=== PATIENT | female | born 1990 | race African-American/Black ===

== ENCOUNTER 2021-03-09 19:08 | Observation (INO) | payer OTHER, SELFPAY ==
--- NOTE | ~2021-03-09 | US_ITS ---
EXAMINATION: US pelvic complete EXAM DATE: 03/10/2021 11:09 INDICATION: Vaginal bleeding. TECHNIQUE: Pelvic transabdominal sonogram was performed. There are multiple grayscale and Doppler im ages available for interpretation. There is no prior study for comparison. FINDINGS: Uterus measures 9.0 x 6.0 x 5.6 cm, and is morphologically normal. Endometrial stripe jeremy sures 14 mm, within normal limits. There is no free pelvic fluid. Right adnexa: The ovary measures 2.6 x 2.0 x 3.0 cm and is morphologically normal. Ovarian vascular f low confirmed. Left adnexa: The ovary measures 2.3 x 2.3 x 2.0 cm and is morphologically normal. Ovarian vascular fl ow confirmed. IMPRESSION: 1. Unremarkable pelvic ultrasound exam. Reviewed, dictated and finalized at location G.
[2021-03-09 19:11] VITALS: BP 136/81; PULSE 84; RESP 16; TEMP 36.5; O2SAT 100
[2021-03-09 20:47] LABS: Basophils Percent Auto 0.6 % (0.2-1.2); Eosinophils Absolute Auto 0.1 K/mm3 (0-0.3); Hematocrit 26.2 % (37.0-47.0); Hemoglobin 7.5 g/dL (12.0-15.0); Immature Granulocyte Absolute 0.02 K/mm3 (0.00-0.031); Immature Granulocyte Percent A 0.3 % (0-0.5); Lymphocytes Absolute Auto 2.79 K/mm3 (0.9-3.2); Lymphocytes Percent Auto 39.8 % (18.3-44.2); Mean Corpuscular HGB Conc 28.6 g/dl (32-36); Mean Corpuscular Hemoglobin 20.4 pg (26-34); Mean Corpuscular Volume 71.4 fl (80-100); Mean Platelet Volume 9.1 fl (7.4-10.4); Monocytes Absolute Auto 0.5 K/mm3 (0.1-0.6); Monocytes Percent Auto 7.6 % (2.6-8.5); Neutrophils Absolute Auto 3.5 K/mm3 (1.3-6.7); Neutrophils Percent Auto 49.7 % (45.5-73.1); Platelet Count Result 460 k/mm3 (150-375); Red Blood Count 3.67 M/mm3 (4.2-5.4); Red Cell Distribution Width 18.8 % (11.5-14.5)
[2021-03-09 20:56] LABS: Alanine Aminotransferase 22 U/L (4-35); Albumin Level 4.6 g/dL (3.5-5.1); Alkaline Phosphatase 77 U/L (38-126); Anion Gap 7 mmol/L (8-16); Aspartate Amino Transferase 22 U/L (14-36); Bilirubin,Total < 0.1 mg/dL (0.2-1.3); Blood Urea Nitrogen 10 mg/dL (7-17); Calcium 9.3 mg/dL (8.4-10.2); Carbon Dioxide 29 mmol/L (22-30); Chloride 105 mmol/L (98-107); Estimated CRCL calculation 101 ml/min; Estimated Glomerular Filt Rate > 60; Glucose 104 mg/dL (65-110); Sodium 141 mmol/L (137-145)
[2021-03-09 21:49] VITALS: BP 144/74; PULSE 94; O2SAT 100
--- NOTE | 2021-03-09 22:22 | ED.FEMALEGU ---
HPI - Female Genitourinary General Chief complaint: Vaginal Bleeding Stated complaint: vaginal bleeding for 3 weeks Time Seen by Provider: 03/09/21 21:19 History of Present Illness HPI Narrative: Patient presents with vaginal bleeding. Patient ports a history of endometriosis and significant vaginal bleeding requiring blood transfusions. She was initially seen by a provider in [place] she has had a trial of control pills hormone therapy and had a D&C done in June she was doing well for a while. However the past 2 weeks she has had increased vaginal bleeding passing large clots and has been feeling lightheaded and weak so she came to the ER for evaluation. Related Data Allergies Allergy/AdvReac Type Severity Reaction Status Date / Time Penicillins Allergy Hives Verified 03/09/21 22:33 Review of Systems Review of Systems: CONSTITUTIONAL: Denies fever, chills, or sweats. EYES: Denies visual changes, redness, or discharge. ENT: Denies rhinorrhea, congestion, sore throat, or otalgia. CARDIOVASCULAR: Denies chest pain, palpitations, or edema. RESPIRATORY: Denies cough or dyspnea. GASTROINTESTINAL: Denies abdominal pain, nausea, vomiting, or diarrhea. GENITOURINARY: Denies dysuria or hematuria. SKIN: Denies rash or itching. MUSCULOSKELETAL: Denies back pain, joint pain, or myalgia. NEUROLOGIC: Denies headache, numbness, dizziness, or weakness. PSYCHIATRIC: Denies anxiety or depression. All systems reviewed & are unremarkable except as noted in HPI and below Exam Narrative: GENERAL: Well-appearing, well-nourished, and in no acute distress. HEAD: Normocephalic, atraumatic. EYES: PERRLA and EOMI. ENT: Nares clear, no rhinorrhea or epistaxis. Mucous membranes moist. NECK: Supple. No masses. No JVD ABDOMEN: Minimal pain with deep palpation soft, nondistended. : Moderate amount of dark blood in the vaginal vault no clots visualized no discharge no external lesions ulcerations or focal areas of tenderness EXTREMITIES: Normal range of motion. No edema. SKIN: Warm, dry, no rash. NEURO: No focal deficits. Alert and oriented x3. PSYCH: Normal mood and affect. Course Reevaluation(s) Reevaluation #1: Patient resting comfortably will admit to the OB service for further evaluation and monitoring of the H&H. Date: 03/09/21 Time: 23:04 Vital Signs Vital signs: Vital Signs Temperature 36.5 C 03/09/21 19:11 Pulse Rate 84 03/09/21 19:11 Respiratory Rate 16 03/09/21 19:11 Blood Pressure 136/81 03/09/21 19:11 Pulse Oximetry 100 03/09/21 19:11 Temperature 36.8 C 03/10/21 01:01 Pulse Rate 91 03/10/21 01:01 Respiratory Rate 18 03/10/21 01:01 Blood Pressure 129/73 03/10/21 01:01 Pulse Oximetry 100 03/10/21 01:01 MDM - Female Genitourinary MDM Narrative Medical decision making narrative: Patient presents with heavy vaginal bleeding with history of need for prior transfusion. Patient overall looks clinically well but is reporting fatigue. Exam is reassuring vital signs reassuring labs obtained has a moderate anemia. Case discussed with SOFTWARE DESIGN MANAGER who will admit and monitor H&H and reassess patient in the morning. Lab Data Result diagrams: 03/09/21 20:35 03/09/21 20:35 Labs: Lab Results 03/09/21 03/09/21 03/09/21 Range/Units 20:35 20:35 22:36 WBC 7.0 (4.5-10.0) K/mm3 RBC 3.67 L (4.2-5.4) M/mm3 Hgb 7.5 L (12.0-15.0) g/dL Hct 26.2 L (37.0-47.0) % MCV 71.4 L (80-100) fl MCH 20.4 L (26-34) pg MCHC 28.6 L (32-36) g/dl RDW 18.8 H (11.5-14.5) % Plt Count 460 H (150-375) k/mm3 MPV 9.1 (7.4-10.4) fl Immature Gran % (Auto) 0.3 (0-0.5) % Neut % (Auto) 49.7 (45.5-73.1) % Lymph % (Auto) 39.8 (18.3-44.2) % [place] % (Auto) 7.6 (2.6-8.5) % Eos % (Auto) 2.0 (0-4.4) % Baso % (Auto) 0.6 (0.2-1.2) % Lymph # (Auto) 2.79 (0.9-3.2) K/mm3 [place] # (Auto) 0.5 (0.1-0.6) K/mm3 Eos # (Auto) 0.1 (0-0.3)
--- NOTE | 2021-03-09 22:30 | PC.NURSE ---
EDP at bedside for pelvic exam
[2021-03-09] MEDS: SODIUM CHLORIDE 0.9% IV 1,000 ML 999 ML IV CONT (22:33)
--- NOTE | 2021-03-09 23:02 | PC.NURSE ---
Per CHRISTIANNE Hernandez. Type and Sceen lab work can be drawn with next scheduled lab draw.
[2021-03-09 23:12] LABS: Beta HCG Quantitative < 2.39 mIU/ML
[2021-03-09 23:26] VITALS: BP 140/88; PULSE 94; RESP 21; O2SAT 100
[2021-03-10] VITALS (14 sets, daily range): BP systolic 108–145; BP diastolic 54–94; PULSE 80–98; RESP 16–24; TEMP 36.1–37.3; O2SAT 100
--- NOTE | 2021-03-10 01:01 | OBPPTRN ---
Patient transferred to room #288 via stretcher. Oriented to unit, room, information board, admission packet. Patient verbalizes understanding.
[2021-03-10] MEDS: IBUPROFEN 600 MG TABLET PO ×2 (02:02→17:33)
[2021-03-10] MEDS: SODIUM CHLORIDE 0.9% IV 1,000 ML 125 ML IV CONT ×2 (02:02→09:40)
[2021-03-10 05:43] LABS: Hematocrit 21.2 % (37.0-47.0)
[2021-03-10 05:57] LABS: Hemoglobin 6.2 g/dL (12.0-15.0)
--- NOTE | 2021-03-10 06:06 | PC.NURSE ---
Critical hemoglobin reported to Dr Carissa Lion. May infuse 2 units PRBC if pt agreeable to treatment.
--- NOTE | 2021-03-10 07:22 | PM.IMHP ---
H&P: HPI History of Present Illness Date/Time: 03/10/21 07:22 30-year-old 1 para 12 years from her last delivery admitted through the ER with vaginal bleeding. Patient has been bleeding 5 since the D and C in June and has been on and off heavy. She has had transfusions before in the past. She had workup and was told she has hormone imbalance . Her hemoglobin was 7 and has dropped to 6 this morning and she is agreeable to 2units of blood. She has not had a recent ultrasound. She does suffer from asthma is on an inhaler and Advair. Chief Complaint: bleeding Review of Systems Review of Systems: All systems reviewed & are unremarkable except as noted in HPI and below Meds Home Medications and Allergies Allergies Allergy/AdvReac Type Severity Reaction Status Date / Time Penicillins Allergy Hives Verified 03/09/21 22:33 Vital Signs Vital Signs - 24 hr 03/09/21 19:11 03/09/21 21:49 03/09/21 23:26 Temperature 97.7 F Pulse Rate 84 94 94 Respiratory Rate 16 21 H Blood Pressure 136/81 144/74 H 140/88 Pulse Oximetry 100 100 100 03/10/21 00:40 03/10/21 00:55 03/10/21 01:01 Temperature 98.3 F Pulse Rate 95 98 91 Respiratory Rate 16 16 18 Blood Pressure 110/55 L 122/56 L 129/73 Pulse Oximetry 100 100 100 Exam Const: General: no acute distress Eyes: General: appearance normal, both eyes and all related structures Neck: Neck: supple and no JVD Thyroid: thyroid normal Resp: Effort & Inspection: normal respiratory effort Auscultation: clear to auscultation bilaterally Cardio: Rate: regular rate Rhythm: regular rhythm GI: Inspection: non-distended GI Palp: Yes Soft to palpation, No Tenderness to palpation present (GI) and No Guarding due to palpation present (GI) Auscultation: normal bowel sounds Skin: General skin exam: no rashes or lesions noted Extrem: General: normal to inspection and no edema Psych: Mental Status: mental status grossly normal Affect: normal affect H&P: Results Labs Labs: Short CBC 03/09/21 03/10/21 Range/Units 20:35 05:37 WBC 7.0 (4.5-10.0) K/mm3 Hgb 7.5 L 6.2 L* (12.0-15.0) g/dL Hct 26.2 L 21.2 L (37.0-47.0) % Plt Count 460 H (150-375) k/mm3 BMP 03/09/21 20:35 Sodium 141 Potassium 4.0 Chloride 105 Carbon Dioxide 29 BUN 10 Creatinine 0.90 Glucose 104 Calcium 9.3 Liver Function 03/09/21 Range/Units 20:35 Total Bilirubin < 0.1 L (0.2-1.3) mg/dL AST 22 (14-36) U/L ALT 22 (4-35) U/L Alkaline Phosphatase 77 (38-126) U/L Albumin 4.6 (3.5-5.1) g/dL Assessment and Plan Additional Plan Impression: Bleeding resulting in anemia apparently a longstanding Plan: 2Units of blood this morning. We did an ultrasound. I did discuss COVID vaccine with her and she is agreeable to that. We will review her of findings and make decisions where to go from there
--- NOTE | 2021-03-10 18:24 | PC.NURSE ---
1430 Consult to hospitalist entered; spoke to Nakita Camargo, person defensive fire control systems operator; report given on pt. She affirmed that pt will be seen.
[2021-03-10 22:04] LABS: Hematocrit 28.8 % (37.0-47.0); Hemoglobin 8.6 g/dL (12.0-15.0)
[2021-03-11] MEDS: SODIUM CHLORIDE 0.9% IV 1,000 ML 80 ML IV CONT (01:59)
[2021-03-11 03:40] VITALS: BP 142/82; PULSE 90; RESP 16; TEMP 36.6; O2SAT 99
--- NOTE | 2021-03-11 06:14 | PM.GYNPNOP ---
SPLITTER OPERATOR - A/P Postoperative Postoperative status: doing well and anemia Time Spent With Patient Time: Total time spent is greater than 50% in coordination of care (as documented) at patient's floor/unit and/or counseling patient: Time with patient: less than 15 minutes SPLITTER OPERATOR- PN:Oralia Post-Op Subjective Date/time seen: 03/11/21 06:14 Subjective: patient reports feeling better and patient has no complaints Review of Systems Review of Systems: All systems reviewed & are unremarkable except as noted in HPI and below Exam Const: General: no acute distress Eyes: General: appearance normal, both eyes and all related structures Neck: Neck: supple and no JVD Thyroid: thyroid normal Resp: Effort & Inspection: normal respiratory effort Auscultation: clear to auscultation bilaterally Cardio: Rate: regular rate Rhythm: regular rhythm GI: Inspection: non-distended GI Palp: Yes Soft to palpation, No Tenderness to palpation present (GI) and No Guarding due to palpation present (GI) Auscultation: normal bowel sounds : General: Yes bladder normal to palpation External Female Exam: normal external appearance Speculum Exam - Vagina: normal vaginal discharge and No vaginal bleeding Speculum Exam - Cervix: nontender Bimanual exam- vagina & uterus: bladder normal to palpation and No Cervical tenderness present OB/external & speculum: No vaginal bleeding Skin: General skin exam: no rashes or lesions noted Extrem: General: normal to inspection and no edema Psych: Mental Status: mental status grossly normal Affect: normal affect SPLITTER OPERATOR - PN: Obj Data Vital Signs Vital Signs: Vital Signs - 24 hr 03/10/21 10:53 03/10/21 11:53 03/10/21 12:45 Temperature 97.6 F 97 F L 97.6 F Pulse Rate 90 80 80 Respiratory Rate 18 18 18 Blood Pressure 119/76 143/93 H 122/76 Pulse Oximetry 100 100 03/10/21 13:28 03/10/21 13:40 03/10/21 14:45 Temperature 97.6 F 97.6 F 99.2 F Pulse Rate 80 88 81 Respiratory Rate 18 18 20 Blood Pressure 122/76 136/84 108/54 L Pulse Oximetry 100 100 100 03/10/21 16:25 03/10/21 17:15 03/10/21 17:40 Temperature 97.9 F 97.8 F 97.8 F Pulse Rate 93 88 87 Respiratory Rate 20 16 24 H Blood Pressure 145/92 H 137/94 H 124/76 Pulse Oximetry 100 100 100 03/10/21 18:40 03/10/21 19:40 03/11/21 03:40 Temperature 97.7 F 97.6 F 97.8 F Pulse Rate 93 90 90 Respiratory Rate 18 18 16 Blood Pressure 144/78 H 115/60 142/82 H Pulse Oximetry 100 100 99 Intake/Output Intake/Output: Intake & Output 03/08/21 03/09/21 03/10/21 03/11/21 23:59 23:59 23:59 23:59 Intake Total 100 4873 600 Output Total 2550 1050 Balance 100 2323 -450 Meds/Results Medications: Active Medications Generic Name Dose Route Start Last Admin Trade Name Freq PRN Reason Stop Dose Admin Albuterol 2 puff 03/10/21 18:00 Albuterol Sulfate (*Sp) Inhaler INHALATION QIDRT PRN Shortness Of Breath Sodium Chloride 1,000 mls @ 80 mls/hr 03/09/21 23:20 03/11/21 02:00 Normal Saline Iv IV CONT Not Given .[id number] [facility] Ibuprofen 600 mg 03/10/21 01:44 03/10/21 17:33 Ibuprofen 600 Mg Tablet PO 600 mg Q6H PRN Administration Cramping Fluticasone/Salmeterol 2 puff 03/10/21 08:00 Fluticasone/Salmeterol 115-21 Mcg Inhaler 1 Puff INHALATION DAILYRT [facility] Radiology Results: ITS Impressions Pelvis Ultrasound 03/10/21 12:14 IMPRESSION: 1. Unremarkable pelvic ultrasound exam. Labs CBC & Chem 7: 03/10/21 21:48 03/09/21 20:35 Labs: Laboratory Results - last 24 hr 03/10/21 03/10/21 05:37 21:48 Hgb 8.6 L Hct 28.8 L Blood Type A Positive Antibody Screen Negative Crossmatch See Detail
[2021-03-11] MEDS: FLUTICASONE/SALMETEROL 115-21 MCG INHALER 1 PUFF 2 PUFF INHALATION (07:43)
[2021-03-11 08:00] VITALS: BP 132/67; PULSE 90; RESP 18; TEMP 36.6; O2SAT 100
[2021-03-11] MEDS: IBUPROFEN 600 MG TABLET PO (11:02)
--- NOTE | 2021-03-11 13:27 | PM.IMCN ---
Assessment and Plan Assessment and plan (1) Abnormal vaginal bleeding: Code(s): N93.9 - Abnormal uterine and vaginal bleeding, unspecified Status: Acute Assessment and Plan: Pt is seeing OB/ DOCUMENTATION NURSE pt will need to follow with them in clinic Pt started on tranexamic pt asked to avoid ASA or Nsaid until bleeding stops Can count sanitary pads (2) HTN (hypertension): Code(s): I10 - Essential (primary) hypertension Status: Chronic Assessment and Plan: pt will need to stat on HTCZ low salt diet weight loss is adviced Follow up with new PCP List of PCP numbers given to patient. (3) Morbid obesity: Code(s): E66.01 - Morbid (severe) obesity due to excess calories Status: Acute Assessment and Plan: Pt advised to loose weight (4) Asthma: Code(s): J45.909 - Unspecified asthma, uncomplicated Status: Acute Assessment and Plan: PT to take albuterol prn and advair diskus for controlling symptoms Pt is asymptomatic today no sob, cough or wheeze HPI Data of Consult Consult date: 03/11/21 Requesting Physician: Av Johnson MD Primary Care Provider: GROUNDS FOREMAN PHYSICIAN Consult Narrative Narrative: Elena Crum 30-year-old 1 para 12 years from her last delivery admitted through the ER with vaginal bleeding. Vaginal bleeding ongoing for months, pt has tried provera and COCP in the past. bleedin has stopped but has returned again. Wants further investigations. Hospitalist service consulted on asthma and htn management. Pt is from [facility] and would like to be discharged today needs OB/ DOCUMENTATION NURSE MD and needs a PCP. Pt is currently on albuterol and advair discs for asthma Pts Bp is running at BP 132/67, discussed options pt ok to start HCTZ. Review of Systems Review of Systems: All systems reviewed & are unremarkable except as noted in HPI and below PMFSH Past Medical History Medical History Abnormal vaginal bleeding Meds Home Medications and Allergies Allergies Allergy/AdvReac Type Severity Reaction Status Date / Time Penicillins Allergy Hives Verified 03/09/21 22:33 Vital Signs Vital Signs - 24 hr 03/10/21 13:28 03/10/21 13:40 03/10/21 14:45 Temperature 36.4 C 36.4 C 37.3 C Pulse Rate 80 88 81 Respiratory Rate 18 18 20 Blood Pressure 122/76 136/84 108/54 L Pulse Oximetry 100 100 100 03/10/21 16:25 03/10/21 17:15 03/10/21 17:40 Temperature 36.6 C 36.6 C 36.6 C Pulse Rate 93 88 87 Respiratory Rate 20 16 24 H Blood Pressure 145/92 H 137/94 H 124/76 Pulse Oximetry 100 100 100 03/10/21 18:40 03/10/21 19:40 03/11/21 03:40 Temperature 36.5 C 36.4 C 36.6 C Pulse Rate 93 90 90 Respiratory Rate 18 18 16 Blood Pressure 144/78 H 115/60 142/82 H Pulse Oximetry 100 100 99 03/11/21 08:00 Temperature 36.6 C Pulse Rate 90 Respiratory Rate 18 Blood Pressure 132/67 Pulse Oximetry 100 Exam Const: General: well developed Nutritional Appearance: well nourished HENMT: Head: normocephalic Eyes: General: appearance normal, both eyes and all related structures Pupils: Equal, round and reactive pupils present Neck: Neck: supple Chest: Chest palpation & inspection: normal inspection of the chest Resp: Effort & Inspection: normal respiratory effort Auscultation: clear to auscultation bilaterally Cardio: Jugular venous distension: no JVD Rhythm: regular rhythm Heart sounds: S1 normal heart sound present and S2 normal heart sound present GI: Inspection: normal to inspection GI Palp: No abdominal tenderness, Yes Soft to palpation and No Tenderness to palpation present (GI) Auscultation: normal bowel sounds Skin: General skin exam: normal color and dry skin Neuro: Cranial nerves: Yes CN's II-XII intact bilaterally and Yes Equal, round and reactive pupils present Cognition (Neuro): normal cognition Speech: normal speech Motor exam (neuro): [address]
--- NOTE | 2021-03-11 19:28 | PC.NURSE ---
[address] Carissa Lion per phone. Update on pt condition was given. He stated that he wanted the pt to be followed by the reconditioning associate education sales consultant. The pt needs an appointment made with the reconditioning associate education sales consultant before D/C home. [address] Perez per phone made an appointment for this pt for Sunday03/15/2021. 1640 Filed and printed D/C paprework. The pts pharmacy did not show up on the paperwork. When Checking for pts pharmacy in the computer chart non was selected. Asked pt which pharmacy she would like to use?? She Stated [facility] in [place] on [facility]. When trying to apply this to the D/C order it was not successful. Asked Mary Blanca rail transit operator Nurse if she could help? She tried also and wasn't successful. Called IT for help. @ 1800 still not working. IT called back and stated this is something that [facility] will have to fix it may take a while. This was passed on in report to the next RN. The pt was updated. She V/U'd.
--- NOTE | 2021-03-18 10:05 | PM.DS ---
DS: Admitting Diagnosis Discharge Date 03/11/21 Admitting Diagnosis vaginal bleeding resulting in anemia resulting in transfusion DS: Summary Hospital Course Hospital Course: the patient was admitted as a walk-in through the ER. She had a long history of vaginal bleeding which had been refractory to medical therapy. She received 2units of blood and was begun on Lysteda. Her bleeding subsided. The patient and her desire so she was against and IUD, ablation, or hysterectomy. All Time Spent with Patient Time attestation: Total time spent providing and/or coordinating discharge services: Exam Const: General: no acute distress Eyes: General: appearance normal, both eyes and all related structures Neck: Neck: supple and no JVD Thyroid: thyroid normal Resp: Effort & Inspection: normal respiratory effort Auscultation: clear to auscultation bilaterally Cardio: Rate: regular rate Rhythm: regular rhythm GI: Inspection: non-distended GI Palp: Yes Soft to palpation, No Tenderness to palpation present (GI) and No Guarding due to palpation present (GI) Auscultation: normal bowel sounds : General: Yes bladder normal to palpation External Female Exam: normal external appearance Speculum Exam - Vagina: normal vaginal discharge and No vaginal bleeding Speculum Exam - Cervix: nontender Bimanual exam- vagina & uterus: bladder normal to palpation and No Cervical tenderness present OB/external & speculum: No vaginal bleeding Skin: General skin exam: no rashes or lesions noted Extrem: General: normal to inspection and no edema Psych: Mental Status: mental status grossly normal Affect: normal affect Discharge Plan Discharge Attending physician on discharge: Av Johnson Consulting providers: Darius Romeo ; Lanette Cortes Discharging Clinician: Av Johnson Patient Disposition: Home, Self-Care Activity: unlimited Diet: regular Wound Care Instructions: follow printed instructions Patient Instructions: Abnormal (Dysfunctional) Uterine Bleeding (DC) Stand Alone Forms: General Discharge Information Follow-up/Referrals: Av Johnson MD [Physician] - Kristian Perez MD [Physician] - 03/15/21 9:30 am Discharge Medications: New tranexamic acid 650 mg Tablet 650 mg PO BID Qty: 10 RF: 0 hydrochlorothiazide 25 mg Tablet 25 mg PO DAILY Qty: 30 RF: 0 fluticasone propion-salmeterol [Advair Diskus] 250-50 mcg/dose Blister With Device 1 inh INHALATION Q12H Qty: 60 RF: 0 albuterol sulfate [Proventil HFA] 90 mcg/actuation Hfa Aerosol Inhaler 1 inh INHALATION QID Qty: 1 RF: 0 Date of admission: 03/09/21 23:18 Primary Care Provider: PHYSICIAN,CREDIT REFERENCE CLERK Admitting Provider: Av Johnson Attending physician on admission: Av Johnson Condition: Stable
== END 2021-03-11 20:30 | disposition home or self-care (01) ==
LOC: ANHED 23:19 → ANHOB2 23:42
PROVIDERS: Emergency Medicine; Student in an Organized Health Care Education/Training Program; Admitting Provider Obstetrics & Gynecology; Emergency Provider Emergency Medicine; Visit Provider Obstetrics & Gynecology
DX: N93.9 Abnormal uterine and vaginal bleeding, unspecified (principal); J45.909 Unspecified asthma, uncomplicated; D64.9 Anemia, unspecified; I10 Essential (primary) hypertension; E66.01 Morbid (severe) obesity due to excess calories; Z68.42 Body mass index [BMI] 45.0-49.9, adult
CPT/HCPCS: 36415; 36430; 76856; 80053; 84702; 85014; 85018; 85025; 86850; 86900; 86901; 86920; 87070; 87077; 87491; 87591; 87808; 94640; 96361; 96365; 99285; A9270; G0378; G0379; J0131; J7030; P9016